=== PATIENT | male | born 1930 | race Caucasian/White ===

== ENCOUNTER 2015-12-21 16:10 | Outpatient (RCR) | payer MEDICARE, OTHER ==
[2015-12-21 17:21] LABS: ALBUMIN 3.6 g/dL (3.4-5.0); ANION GAP 14.6 MEQ/L (3-15); CALCULATED IONIZED CALCIUM 3.6 mg/dL (3.8-4.6); TOTAL PROTEIN 8.5 g/dL (6.4-8.5)
== END 2016-03-20 | disposition home or self-care (01) ==
LOC: LAB 16:10
PROVIDERS: ATTEND Family Medicine
DX: I48.91 Unspecified atrial fibrillation (principal); I10 Essential (primary) hypertension
CPT/HCPCS: 36415; 80053; 85610

== ENCOUNTER 2016-05-23 14:57 | Outpatient (RCR) | payer MEDICARE, OTHER | END 2016-07-26 19:21 | disposition home or self-care (01) | LOC: LAB 14:57 | PROVIDERS: ATTEND Family Medicine | DX: I48.91 Unspecified atrial fibrillation (principal) | CPT/HCPCS: 36415; 85610 ==